=== PATIENT | male | born 1970 | race Caucasian/White ===

== ENCOUNTER 2021-11-16 12:34 | Emergency (ER) | payer MEDICARE ==
[~2021-11-16] VITALS: Ht 177.8 cm; Wt 75.0 kg
[2021-11-16 12:40] VITALS: BP 168/93
[2021-11-16] MEDS ORDERED: proparacaine 0.5% ophthalmic drops 15ml EACHEYE ONE (16:05)
[2021-11-16] MEDS ORDERED: TOBR5DRO2 RIGHTEYE (16:31)
== END 2021-11-16 16:48 | disposition home or self-care (01) ==
LOC: ER 12:36
DX: S05.01XA Injury of conjunctiva and corneal abrasion without foreign body, right eye, initial encounter (principal); H57.11 Ocular pain, right eye; F12.90 Cannabis use, unspecified, uncomplicated; Z79.2 Long term (current) use of antibiotics; X58.XXXA Exposure to other specified factors, initial encounter; Y93.89 Activity, other specified; Y92.89 Other specified places as the place of occurrence of the external cause; Y99.8 Other external cause status
CPT/HCPCS: 99283